=== PATIENT | male | born 1945 | race Caucasian/White ===

== ENCOUNTER → 2016-11-25 | Outpatient (CLI) | payer OTHER, MEDICARE ==
[~2016-11-25] MED LIST: ACEBUTOLOL HCL200 MG PO; ALDACTONE25 MG PO; ALLOPURINOL 30300 M1 PO; ANTIFUNGAL CREA28 GM; ASPIRIN325 PO; ASTEPRO IH; ASTEPRO NASAL; AUGMENTIN 875875 MG PO; AZELASTINE NASAL; BAYER CHEWABLE81 MG PO; BENADRYL25 MG PO; BENICAR HCT 401 EAC1 PO; BUFFERIN 81 MG81 MG; CARVEDILOL12.5 MG PO; CARVEDILOL6.25 MG PO; CIPRO500 MG PO; CLARITIN10 MG PO; CLONIDINE HCL0.1 MG PO; COLACE 100 MG100 MG PO; COREG25 MG PO; COREG6.25 MG PO; COZAAR 50 MG TA50 M2 PO; DEMADEX10 MG PO; DEMADEX20 MG PO; ELIQUIS5 MG PO; ENTRESTO 24 MG1 EACH PO; ENTRESTO 49 MG1 EACH PO; FENOFIBRATE160 MG PO; FISH OIL 1,0001 EAC5 PO; FLOMAX0.4 MG PO; FOLBIC RF TABL1 EACH PO; FOLBIC TABLET1 TAB PO; FOLIC ACID1 MG PO; FOLTX TABLET1 EAC1 PO; FOLTX1 TAB PO; GLUCOPHAGE500 MG PO; HYTRIN 5 M5 MG/1 CA1 PO; HYTRIN 5 M5 MG/1 CAP PO; HYZAAR 100-251 EACH PO; KLOR-CON 1010 MEQ PO; LEVOTHYROXIN0.075 MG PO; LEVOTHYROXINE0.05 MG PO; LIPITOR10 MG PO; LYRICA 75 MG CA75 MG PO; LYRICA150 MG PO; MAG-OXIDE400 MG PO; MULTIVITAMINS PO; NORCO 5-325 TA1 EACH PO; NORVASC10 MG PO; NOVOLIN N100 UNIT/1 SUBQ; ORADENT 0.1% DEN5 G1 TOP; PACERONE 200 M200 MG PO; PLAVIX 75 MG TA75 MG PO; PREDNISONE 10 M10 MG; PROSCAR 5MG TABL5 M1 PO; PYRIDOXINE HCL25 MG PO; SPIRONOLACTONE25 M1 PO; TENORMIN50 MG PO; TORSEMIDE20 MG PO; TRIAMCINOLONE A80 G2; TRINATE TABLET1 TAB PO; TYLENOL325 MG PO; VITAMIN B-1100 M1 PO; VITAMIN D-32000 UNI1 PO; VITAMIN D1000 UNI1 PO; VITAMIN E400 UNIT PO; XARELTO20 MG PO; ZETIA10 MG PO; ZOCOR80 MG PO
--- NOTE | ~2016-11-25 | 2DMMODE ---
[facility] [place] [address] 2 D/M-MODE ECHOCARDIOGRAM Name: CLOTILDESANTO Mumtaz Room #: REG [facility]#: [id number] Admission: 11/25/16 Attend Phys: Tavon Calhoun MD Discharge: Date of : 45 Date of Service: 11/25/16 1308 Report #: [id number] THIS REPORT FOR: //name// Transthoracic Echocardiography Ordering physician: Tavon Calhoun MD Referring physician: Sarwat Remy MD Electrical Logging Operator: LES Leon Indications/History: PPM, Cardiomyopathy. BP: 132 / HR: Height: 72in Weight: 269.4lb 76 Study data: M-mode, complete 2D, complete spectral Doppler, and color Doppler. Location: Echo laboratory. Routine. Image quality was good. 2D measurements Normal Normal LVID ED 51.9mm 36-57 IVS ED 11.1mm 6-11 LVID ES 46.4mm 23-40 LVPW ED 10.8mm 6-11 LA volume 36ml/m2 16-28 AoRoot diam 31.4mm 21-37 index ED LVOT diameter 22mm 18-23 Findings: Left ventricle: The cavity size was normal. Wall thickness was normal. Systolic function was severely reduced. The estimated ejection fraction was = 25%. Severe diffuse hypokinesis. Right ventricle: The cavity size was normal. Pacer wire or catheter noted in right ventricle. Systolic function was normal. Right atrium: The atrium was at the upper limits of normal in size. Left atrium: The atrium was mildly dilated. Volume index: 36ml/m2 (S). Aortic valve: Trileaflet; mildly thickened, mildly [address] [address] 2 D/M-MODE ECHOCARDIOGRAM Name: SANTO MABRY Room #: REG Jj#: [id number] Admission: 11/25/16 Attend Phys: Tavon Calhoun MD Discharge: Date of : 45 Date of Service: 11/25/16 1308 Report #: [id number] calcified leaflets. Doppler: There was no stenosis. Mild regurgitation. Peak velocity: 126.9cm/s (S). Mitral valve: Mildly calcified annulus. Doppler: There was no evidence for stenosis. Mild regurgitation. Peak E-wave velocity: 79.9cm/s. Peak gradient: 2.6mm Hg (D). Tricuspid valve: Structurally normal valve. Doppler: There was no evidence for stenosis. Mild regurgitation. Regurgitant peak velocity: 245.9cm/s. Peak RV-RA gradient: 24mm Hg (S). Pulmonic valve: Structurally normal valve. Doppler: There was no evidence for stenosis. No regurgitation. Pericardium: There was no pericardial effusion. Aorta: Aortic root: The aortic root was normal in size. Pulmonary artery: Systolic pressure was estimated to be 29mm Hg. Diastolic function: The study was not technically sufficient to allow evaluation of LV diastolic dysfunction due to atrial fibrillation. Systemic veins: Inferior vena cava: The vessel was normal in size; the respirophasic diameter changes were in the normal range (= 50%). Conclusions 1. Left ventricle: The cavity size was normal. Wall thickness was normal. Systolic function was severely reduced. The estimated ejection fraction was = 25%. 2. Right ventricle: The cavity size was normal. 3. Left atrium: The atrium was mildly dilated. 4. Aortic valve: Trileaflet; mildly thickened, mildly calcified leaflets. Mild regurgitation. 5. Mitral valve: Mildly calcified annulus. Mild regurgitation. 6. Tricuspid valve: Mild regurgitation. 7. Pericardium, extracardiac: There was no pericardial effusion. <ELECTRONICALLY SIGNED> By: Tavon Calhoun MD 11/25/16 1514 1308 1514 Tavon Calhoun MD /awilda
== END ==
LOC: CV 10-28 08:26
DX: I42.9 Cardiomyopathy, unspecified (principal); Z95.0 Presence of cardiac pacemaker

== ENCOUNTER → 2016-12-03 | Outpatient (CLI) | payer OTHER, MEDICARE | LOC: CAT 12:33 | DX: G47.33 Obstructive sleep apnea (adult) (pediatric) (principal); R06.02 Shortness of breath; I25.10 Atherosclerotic heart disease of native coronary artery without angina pectoris ==

== ENCOUNTER 2017-08-23 16:55 | Inpatient (IN) | payer OTHER, MEDICARE ==
[~2017-08-23] VITALS: Ht 185.4 cm; Wt 124.7 kg
--- NOTE | ~2017-08-23 | EKG ---
[address] [address] ELECTROCARDIOGRAM REPORT Name: SANTO MABRY Room #: 434-P [facility]#: [id number] Admission: 08/23/17 Attend Phys: Johnny Barahona MD Discharge: Date of : 45 Report #: [id number] THIS REPORT FOR: //name// [facility] ED Test Date: 2017-08-23 Test Time: 17:12:53 Pat Name: SANTO MABRY Department: Room: 434 Gender: M Workforce Management Consultant: MICHELLE : 1945 Requested By: Raimundo Merida Order Number: [id number] MD: Tavon Calhoun Measurements Intervals [place] Rate: 80 P: 64 SC: 174 QRS: -36 QRSD: 100 T: 122 QT: 420 QTc: 485 Interpretive Statements Sinus rhythm Atrial premature complex Left axis deviation Anterior infarct, age indeterminate Lateral leads are also involved Compared to ECG 10/15/2015 18:49:08 Atrial fibrillation no longer present Electronically Signed On 08-24-2017 10:39:24 CDT by Tavon Calhoun [email or web address] <ELECTRONICALLY SIGNED> By: Tavon Calhoun MD 08/24/17 1039 11 11 Tavon Calhoun MD /[facility]
--- NOTE | ~2017-08-23 | HC ---
[facility] [place] [address] CONSULTATION Name: CLOTILDESANTO [id number] Admission: 08/23/17 Attend Phys: Noah Parker DO Discharge: Date of : 45 Report #: [id number] THIS REPORT FOR: //name// CC: Sarwat Barahona DATE OF SERVICE: 08/24/2017 CARDIOLOGY CONSULTATION DATE OF SERVICE: 08/24/2017 INDICATION: Cardiomyopathy, elevated troponin level. HISTORY OF PRESENT ILLNESS: This is a 72-year-old gentleman presenting with an episode of back discomfort and confusion. The patient has a history of severe nonischemic cardiomyopathy, CAD, ICD, presenting with the above complaints. After taking a shower yesterday morning, he developed a pain across his upper back area. Apparently, there is some confusion, as he was unable to work his TV remote control. He denies any chest pain, dyspnea, lightheadedness, fever or diarrhea. He spoke to his family and they were concerned. PAST MEDICAL HISTORY: Severe nonischemic cardiomyopathy, history of coronary artery disease with remote stent, history of atrial fibrillation, ICD, carotid endarterectomy, hypertension, diabetes mellitus, hypercholesterolemia. ALLERGIES: Please see medical records for full details. MEDICATIONS: At home include torsemide 20 mg daily, Entresto one tablet twice a day, Eliquis 5 mg twice a day, Zetia 10 mg daily, potassium, Coreg 6.25 mg twice a day, Lipitor 10 mg daily. SOCIAL HISTORY: Negative for tobacco use. FAMILY HISTORY: Negative for premature CAD. REVIEW OF SYSTEMS: A full 10-point review of systems performed. Only the pertinent positives and negatives are as described in the HPI. PHYSICAL EXAMINATION: VITAL SIGNS: Blood pressure is 130/80, heart rate is 80 beats per minute. GENERAL APPEARANCE: An overweight male in no acute respiratory distress. HEAD AND EYES: Normocephalic. Sclerae are anicteric. ENT: Oral mucosa moist. NECK: Supple, no JVD. LUNGS: Clear to auscultation. [facility] [address] [place] [address] CONSULTATION Name: SANTO MABRY Room #: 416-P [facility]..#: [id number] Admission: 08/23/17 Attend Phys: Noah Parker DO Discharge: Date of : 45 Report #: [id number] CARDIAC: Regular rate and rhythm, S1, S2 positive. ABDOMEN: Soft, protuberant, bowel sounds positive. EXTREMITIES: No cyanosis. Trace lower extremity edema. ECG reveals sinus rhythm, inferior wall KS, poor R-wave progression, T-wave inversions in the precordial leads. LABORATORY VALUES: Peak troponin is 0.11, white count 9.8, hemoglobin 16.3, sodium is 139, creatinine is 1.8. RADIOLOGIC IMAGING: Chest x-ray is unremarkable. CT of the head shows no acute intracranial process. ASSESSMENT AND PLAN: 1. Coronary artery disease, remote history of stent placement. He had an episode of upper back pain. The troponin level is in the indeterminate range. I do not believe this is cardiac related. Continue with medical therapy. 2. Severe cardiomyopathy, appears to be euvolemic on examination. Continue with medications including Entresto, Coreg, and torsemide. 3. Acute mental status change, he had had an episode of confusion. Appears to be stable and back to baseline. He is oriented x 3. May have been related to dehydration, rule out urinary tract infection. 4. Diabetes mellitus, continue with medications. 5. Hypertension, continue with medications. 6. Paroxysmal atrial fibrillation, continue with Eliquis. 7. Hypercholesterolemia, continue with statin therapy. Thank you for allowing me to participate in the care of your patient. <ELECTRONICALLY SIGNED> By: Tavon Calhoun MD 08/25/17 0830 1101 1245 Tavon Calhoun MD /nt
[2017-08-23 16:57] VITALS: BP 136/86
[2017-08-23 17:49] LABS: HEMATOCRIT 48.8 % (42.0-52.0); HEMOGLOBIN 16.3 gm/dL (14.0-18.0); MCH 33.8 pg (26.0-34.0); MCHC 33.4 g/dL (28.0-37.0); RBC 4.83 mil/uL (4.50-6.00); RDW 15.6 % (10.5-14.5); WBC 9.8 thou/uL (4.0-11.0)
[2017-08-23 18:02] LABS: CALCIUM 9.3 mg/dL (8.5-10.1); CREATININE 1.8 mg/dL (0.7-1.3); POTASSIUM 4.6 mmol/L (3.5-5.1)
[2017-08-23 18:14] LABS: URINE BILIRUBIN NEGATIVE (Negative); URINE BLOOD NEGATIVE (Negative); URINE COLOR YELLOW; URINE GLUCOSE-RANDOM* NEGATIVE (Negative); URINE KETONES NEGATIVE (Negative); URINE LEUKOCYTES-REFLEX TRACE (Negative); URINE PROTEIN (DIPSTICK) NEGATIVE (Negative); URINE SPECIFIC GRAVITY 1.015 (1.003-1.035); URINE UROBILINOGEN 0.2 E.U./dl (0.2-1.0)
[2017-08-23 19:15] VITALS: BP 130/91
[2017-08-23 20:20] VITALS: BP 137/57
[2017-08-24 04:10] VITALS: BP 104/68
[2017-08-24 06:37] LABS: HEMATOCRIT 44.8 % (42.0-52.0); HEMOGLOBIN 14.9 gm/dL (14.0-18.0); MCH 33.6 pg (26.0-34.0); MCHC 33.3 g/dL (28.0-37.0); RBC 4.44 mil/uL (4.50-6.00); RDW 15.6 % (10.5-14.5); WBC 8.1 thou/uL (4.0-11.0)
[2017-08-24 07:02] LABS: CALCIUM 8.7 mg/dL (8.5-10.1); CREATININE 1.8 mg/dL (0.7-1.3); POTASSIUM 4.6 mmol/L (3.5-5.1)
[2017-08-24 07:57] VITALS: BP 135/87
[2017-08-24 19:14] VITALS: BP 124/92
[2017-08-25 06:07] LABS: BASOPHILS 0.5 % (0.0-2.0); EOSINOPHILS 0.6 % (0.0-3.0); HEMATOCRIT 46.1 % (42.0-52.0); HEMOGLOBIN 15.2 gm/dL (14.0-18.0); LYMPHOCYTES 21.1 % (24.0-44.0); MCH 33.6 pg (26.0-34.0); MCHC 33.1 g/dL (28.0-37.0); MCV 101.5 fL (80.0-100.0); MONOCYTES 6.9 % (1.0-8.0); POLYS 70.9 % (36.0-66.0); RBC 4.54 mil/uL (4.50-6.00); RDW 15.8 % (10.5-14.5); WBC 9.8 thou/uL (4.0-11.0)
[2017-08-25 06:12] LABS: MANUAL DIFF NO
[2017-08-25 06:19] LABS: CREATININE 1.7 mg/dL (0.7-1.3); POTASSIUM 4.1 mmol/L (3.5-5.1)
[2017-08-25 09:02] LABS: PLATELET COUNT 138 thou/uL (150-400)
[2017-08-25 09:04] VITALS: BP 131/87
[2017-08-25 09:21] VITALS: BP 131/87
== END 2017-08-25 09:55 | disposition home or self-care (01) | DRG 682 ==
LOC: ER 16:55 → 4N 18:27 → EROBS 18:27 → 4S 18:59 → 4N 08-24 09:58 → ENTRNSPT 08-25 09:37 → EDTRNSPTSTS 08-25 09:41 → 4N 08-25 09:55
PROVIDERS: Emergency Medicine; Family Medicine; Nurse Practitioner Family
DX: N17.9 Acute kidney failure, unspecified (principal); G93.41 Metabolic encephalopathy; I42.8 Other cardiomyopathies; N39.0 Urinary tract infection, site not specified; I50.20 Unspecified systolic (congestive) heart failure; I13.0 Hypertensive heart and chronic kidney disease with heart failure and stage 1 through stage 4 chronic kidney disease, or unspecified chronic kidney disease; E11.22 Type 2 diabetes mellitus with diabetic chronic kidney disease; I25.10 Atherosclerotic heart disease of native coronary artery without angina pectoris; E78.00 Pure hypercholesterolemia, unspecified; I48.0 Paroxysmal atrial fibrillation; E78.5 Hyperlipidemia, unspecified; N18.3 Chronic kidney disease, stage 3 (moderate); G47.33 Obstructive sleep apnea (adult) (pediatric); N40.1 Benign prostatic hyperplasia with lower urinary tract symptoms; M10.9 Gout, unspecified; E03.9 Hypothyroidism, unspecified; F17.210 Nicotine dependence, cigarettes, uncomplicated; Z79.899 Other long term (current) drug therapy; Z95.5 Presence of coronary angioplasty implant and graft; Z91.048 Other nonmedicinal substance allergy status
CPT/HCPCS: 10100

== ENCOUNTER 2017-09-28 22:06 | Emergency (ER) | payer OTHER, MEDICARE ==
[~2017-09-28] VITALS: Ht 185.4 cm; Wt 113.4 kg
--- NOTE | ~2017-09-28 | EKG ---
[address] [address] ELECTROCARDIOGRAM REPORT Name: SANTO MABRY Room #: [facility]#: [id number] Admission: 09/28/17 Attend Phys: Discharge: 09/29/17 Date of : 45 Report #: [id number] THIS REPORT FOR: //name// [facility] ED Test Date: 2017-09-28 Test Time: 22:15:08 Pat Name: SANTO CLOTILDE Department: Room: Gender: M Piece Hand: ALFREDO : 1945 Requested By: Pete Bailon Order Number: [id number] MD: Dany Chan Measurements Intervals [place] Rate: 76 P: 38 IN: 182 QRS: -21 QRSD: 97 T: 96 QT: 394 QTc: 444 Interpretive Statements Sinus rhythm Inferior infarct, old Compared to ECG 08/23/2017 17:12:53 Atrial premature complex(es) no longer present Left-axis deviation no longer present Anterior T wave abnormality less prominent Electronically Signed On 09-29-2017 7:41:30 MILLER APPRENTICE by Dany Chan [email or web address] <ELECTRONICALLY SIGNED> By: Dany Chan MD, [facility] 09/29/17 0741 2215 2215 Dany Chan MD, [facility] /EPI
[2017-09-28 22:52] LABS: BASOPHILS 0.8 % (0.0-2.0); EOSINOPHILS 0.5 % (0.0-3.0); HEMATOCRIT 49.1 % (42.0-52.0); HEMOGLOBIN 16.4 gm/dL (14.0-18.0); LYMPHOCYTES 28.7 % (24.0-44.0); MCH 33.4 pg (26.0-34.0); MCHC 33.4 g/dL (28.0-37.0); MCV 99.8 fL (80.0-100.0); MONOCYTES 8.2 % (1.0-8.0); PLATELET COUNT 166 thou/uL (150-400); POLYS 61.8 % (36.0-66.0); RBC 4.92 mil/uL (4.50-6.00); RDW 15.1 % (10.5-14.5); WBC 9.8 thou/uL (4.0-11.0)
[2017-09-28 23:00] LABS: MANUAL DIFF NO
[2017-09-28 23:01] LABS: ANION GAP 16 mmol/L (7-16); BUN 38 mg/dL (7-18); CALCIUM 9.1 mg/dL (8.5-10.1); CHLORIDE 101 mmol/L (98-107); CO2 20 mmol/L (21-32); CREATININE 1.6 mg/dL (0.7-1.3); GLUCOSE 97 mg/dL (74-106); POTASSIUM 4.6 mmol/L (3.5-5.1); SODIUM 137 mmol/L (136-145)
[2017-09-28 23:10] LABS: ALBUMIN 3.7 g/dL (3.4-5.0); ALKALINE PHOSPHATASE 96 U/L (46-116); MAGNESIUM 1.8 mg/dL (1.8-2.4); SGOT 22 U/L (15-37); SGPT 34 U/L (30-65); TOTAL BILIRUBIN 0.5 mg/dL (<0.1-1.0); TOTAL PROTEIN 7.5 g/dL (6.4-8.2); TROPONIN-I < 0.04 ng/mL (<0.06)
== END 2017-09-29 07:33 | disposition home or self-care (01) ==
LOC: ER 22:06
PROVIDERS: Emergency Medicine
DX: F10.129 Alcohol abuse with intoxication, unspecified (principal); E86.0 Dehydration; I13.0 Hypertensive heart and chronic kidney disease with heart failure and stage 1 through stage 4 chronic kidney disease, or unspecified chronic kidney disease; E11.22 Type 2 diabetes mellitus with diabetic chronic kidney disease; N18.3 Chronic kidney disease, stage 3 (moderate); I50.9 Heart failure, unspecified; E03.9 Hypothyroidism, unspecified; I48.2 Chronic atrial fibrillation; N40.0 Benign prostatic hyperplasia without lower urinary tract symptoms; M10.9 Gout, unspecified; G47.33 Obstructive sleep apnea (adult) (pediatric); Z88.8 Allergy status to other drugs, medicaments and biological substances; Z87.891 Personal history of nicotine dependence; W01.0XXA Fall on same level from slipping, tripping and stumbling without subsequent striking against object, initial encounter; Y93.89 Activity, other specified; Y92.009 Unspecified place in unspecified non-institutional (private) residence as the place of occurrence of the external cause; Y99.8 Other external cause status; Y90.6 Blood alcohol level of 120-199 mg/100 ml

== ENCOUNTER 2017-11-07 02:23 | Inpatient (IN) | payer OTHER, MEDICARE ==
[~2017-11-07] VITALS: Ht 185.4 cm; Wt 113.4 kg
[2017-11-07] VITALS (7 sets, daily range): BP systolic 101–139; BP diastolic 55–90
--- NOTE | ~2017-11-07 | EKG ---
[address] [place] [address] ELECTROCARDIOGRAM REPORT Name: SANTO MABRY Room #: 445-P ADM IN M.R.#: [id number] Admission: 11/07/17 Attend Phys: Noah Parker DO Discharge: Date of : 45 Report #: [id number] THIS REPORT FOR: //name// [facility] ED Test Date: 2017-11-07 Test Time: 02:31:44 Pat Name: SANTO MABRY Department: Room: [facility] Gender: M Concrete Block Molder: JONNY : 1945 Requested By: Raimundo Merida Order Number: [id number] MD: Dany Chan Measurements Intervals [place] Rate: 64 P: -10 [place]: 53 QRS: -17 QRSD: 98 T: 74 QT: 445 QTc: 459 Interpretive Statements Sinus rhythm Inferior infarct, old Poor R wave progression Baseline wander in lead(s) V1 Compared to ECG 09/28/2017 22:15:08 No significant change was found Electronically Signed On 11-07-2017 9:19:04 MANAGER OF REGULATORY AFFAIRS by Dany Chan [email or web address] <ELECTRONICALLY SIGNED> By: Dany Chan MD, [facility] 11/07/17 0919 0231 0231 Dany Chan MD, [facility] /EPI
[2017-11-07 03:05] LABS: HEMATOCRIT 44.5 % (42.0-52.0); HEMOGLOBIN 15.2 gm/dL (14.0-18.0); MCH 33.4 pg (26.0-34.0); MCHC 34.2 g/dL (28.0-37.0); MCV 97.7 fL (80.0-100.0); RBC 4.55 mil/uL (4.50-6.00); RDW 14.4 % (10.5-14.5)
[2017-11-07 03:11] LABS: ANION GAP 15 mmol/L (7-16); BUN 26 mg/dL (7-18); CALCIUM 8.5 mg/dL (8.5-10.1); CHLORIDE 102 mmol/L (98-107); CO2 24 mmol/L (21-32); CREATININE 1.4 mg/dL (0.7-1.3); GLUCOSE 137 mg/dL (74-106); POTASSIUM 3.8 mmol/L (3.5-5.1); SODIUM 141 mmol/L (136-145)
[2017-11-07 03:19] LABS: ALBUMIN 3.4 g/dL (3.4-5.0); ALKALINE PHOSPHATASE 94 U/L (46-116); SGOT 19 U/L (15-37); SGPT 35 U/L (30-65); TOTAL BILIRUBIN 0.3 mg/dL (<0.1-1.0); TOTAL PROTEIN 6.5 g/dL (6.4-8.2); TROPONIN-I < 0.04 ng/mL (<0.06)
[2017-11-07 09:19] LABS: TSH 2.05 uIU/mL (0.358-3.740)
[2017-11-08 03:56] LABS: HEMATOCRIT 42.5 % (42.0-52.0); HEMOGLOBIN 14.5 gm/dL (14.0-18.0); MCH 33.3 pg (26.0-34.0); MCHC 34.1 g/dL (28.0-37.0); MCV 97.8 fL (80.0-100.0); RBC 4.35 mil/uL (4.50-6.00); RDW 14.2 % (10.5-14.5); WBC 8.4 thou/uL (4.0-11.0)
[2017-11-08 04:00] LABS: CALCIUM 8.8 mg/dL (8.5-10.1); CREATININE 1.7 mg/dL (0.7-1.3); MAGNESIUM 2.2 mg/dL (1.8-2.4); POTASSIUM 4.4 mmol/L (3.5-5.1)
[2017-11-08 05:54] VITALS: BP 151/76
[2017-11-08 08:00] VITALS: BP 143/82
[2017-11-08 11:18] VITALS: BP 143/82
== END 2017-11-08 12:03 | disposition home or self-care (01) | DRG 92 ==
LOC: ER 02:23 → 4S 03:43 → EROBS 03:43 → 4S 04:52
PROVIDERS: Emergency Medicine; Nurse Practitioner; Nurse Practitioner Family; Registered Nurse
DX: R29.6 Repeated falls (principal); I50.20 Unspecified systolic (congestive) heart failure; I42.8 Other cardiomyopathies; I13.0 Hypertensive heart and chronic kidney disease with heart failure and stage 1 through stage 4 chronic kidney disease, or unspecified chronic kidney disease; I25.10 Atherosclerotic heart disease of native coronary artery without angina pectoris; N40.0 Benign prostatic hyperplasia without lower urinary tract symptoms; E11.22 Type 2 diabetes mellitus with diabetic chronic kidney disease; F32.9 Major depressive disorder, single episode, unspecified; F17.210 Nicotine dependence, cigarettes, uncomplicated; N18.3 Chronic kidney disease, stage 3 (moderate); E03.9 Hypothyroidism, unspecified; M10.9 Gout, unspecified; G47.33 Obstructive sleep apnea (adult) (pediatric); I48.91 Unspecified atrial fibrillation; Z95.0 Presence of cardiac pacemaker; Z95.5 Presence of coronary angioplasty implant and graft; Z88.8 Allergy status to other drugs, medicaments and biological substances; Z86.73 Personal history of transient ischemic attack (TIA), and cerebral infarction without residual deficits; I25.2 Old myocardial infarction; Z79.899 Other long term (current) drug therapy; Z23 Encounter for immunization
CPT/HCPCS: 10195

== ENCOUNTER 2017-12-22 05:23 | Emergency (ER) | payer OTHER, MEDICARE ==
[~2017-12-22] VITALS: Ht 185.4 cm; Wt 122.5 kg
[2017-12-22 05:40] VITALS: BP 147/85
== END 2017-12-22 06:25 | disposition home or self-care (01) ==
LOC: ER 05:23
DX: H92.22 Otorrhagia, left ear (principal); I13.0 Hypertensive heart and chronic kidney disease with heart failure and stage 1 through stage 4 chronic kidney disease, or unspecified chronic kidney disease; E11.22 Type 2 diabetes mellitus with diabetic chronic kidney disease; N18.3 Chronic kidney disease, stage 3 (moderate); I50.9 Heart failure, unspecified; E03.9 Hypothyroidism, unspecified; M10.9 Gout, unspecified; I48.2 Chronic atrial fibrillation; N40.0 Benign prostatic hyperplasia without lower urinary tract symptoms; Z88.8 Allergy status to other drugs, medicaments and biological substances; Z87.891 Personal history of nicotine dependence

== ENCOUNTER 2017-12-26 05:01 | Emergency (ER) | payer OTHER, MEDICARE ==
[~2017-12-26] VITALS: Ht 185.4 cm; Wt 122.5 kg
--- NOTE | ~2017-12-26 | EKG ---
[address] [address] ELECTROCARDIOGRAM REPORT Name: SANTO MABRY [facility] [id number] Admission: 12/26/17 Attend Phys: Discharge: 12/26/17 Date of : 45 Report #: [id number] THIS REPORT FOR: //name// [facility] ED Test Date: 2017-12-26 Test Time: 05:23:46 Pat Name: SANTO MABRY Department: Room: Gender: Director Of Recreation Therapy: ALONZO : 1945 Requested By: Raimundo Merida Order Number: [id number] MD: Dany Chan Measurements Intervals [place] Rate: 63 P: -9 [place]: 189 QRS: -15 QRSD: 99 T: 86 QT: 456 QTc: 467 Interpretive Statements Sinus rhythm No significant abnormality Compared to ECG 11/07/2017 02:31:44 Inferior Q waves no longer present Poor R-wave progression no longer present Electronically Signed On 12-26-2017 8:55:43 HOUSE PAINTING INSTRUCTOR by Dany Chan [email or web address] <ELECTRONICALLY SIGNED> By: Dany Chan MD, [facility] 12/26/17 0855 2 Dany Chan MD, [facility] /EPI
[2017-12-26 05:49] LABS: HEMATOCRIT 36.7 % (42.0-52.0); HEMOGLOBIN 12.6 gm/dL (14.0-18.0); MCHC 34.2 g/dL (28.0-37.0); MCV 99.4 fL (80.0-100.0); RBC 3.7 mil/uL (4.50-6.00); RDW 15.1 % (10.5-14.5); WBC 8.7 thou/uL (4.0-11.0)
[2017-12-26 06:02] LABS: ANION GAP 15 mmol/L (7-16); BUN 28 mg/dL (7-18); CALCIUM 8.4 mg/dL (8.5-10.1); CHLORIDE 105 mmol/L (98-107); CO2 21 mmol/L (21-32); CREATININE 1.8 mg/dL (0.7-1.3); GLUCOSE 116 mg/dL (74-106); SODIUM 141 mmol/L (136-145)
[2017-12-26 06:09] LABS: ALBUMIN 3.2 g/dL (3.4-5.0); SGOT 22 U/L (15-37); SGPT 30 U/L (30-65); TOTAL BILIRUBIN 0.7 mg/dL (<0.1-1.0); TOTAL PROTEIN 6.7 g/dL (6.4-8.2); TROPONIN-I < 0.04 ng/mL (<0.06)
[2017-12-26 07:21] VITALS: BP 103/46
== END 2017-12-26 07:23 | disposition home or self-care (01) ==
LOC: ER 05:01
PROVIDERS: Emergency Medicine
DX: M25.562 Pain in left knee (principal); E11.22 Type 2 diabetes mellitus with diabetic chronic kidney disease; I13.0 Hypertensive heart and chronic kidney disease with heart failure and stage 1 through stage 4 chronic kidney disease, or unspecified chronic kidney disease; N18.3 Chronic kidney disease, stage 3 (moderate); I50.9 Heart failure, unspecified; I48.2 Chronic atrial fibrillation; E78.5 Hyperlipidemia, unspecified; E03.9 Hypothyroidism, unspecified; Z88.8 Allergy status to other drugs, medicaments and biological substances; Z87.891 Personal history of nicotine dependence; W18.39XA Other fall on same level, initial encounter; Y93.89 Activity, other specified; Y92.091 Bathroom in other non-institutional residence as the place of occurrence of the external cause; Y99.8 Other external cause status